=== PATIENT | female | born 1940 | race American Indian/Alaskan Native ===

== ENCOUNTER 2021-01-06 13:27 | Emergency (ER) | payer MEDICARE ==
--- NOTE | 2021-01-06 13:52 | Event Note ---
ED Screening Note ED Screening Note: [facility] OPEN FX L WRIST This initial assessment/diagnostic orders/clinical plan/treatment(s) is/are subject to change based on patients health status, clinical progression and re- assessment by fellow clinical providers in the ED. Further treatment and workup at subsequent clinical providers discretion. Patient/guardian urged not to elope from the ED as their condition may be serious if not clinically assessed and managed. Initial orders include: TO ER
[2021-01-06] MEDS ORDERED: KETOROLAC 30 MG/1 ML INJ IV ONE (14:07)
[2021-01-06] MEDS ORDERED: ONDANSETRON 4 MG/2 ML INJ IV ONE (14:07)
[2021-01-06] MEDS ORDERED: DIPHtheria,PERTUSSIS(ACELL),TETANUS VACCINE/PF 0.5 ML VIAL IM ONE (14:07)
[2021-01-06] MEDS ORDERED: HYDROmorphone 1 MG/1 ML INJ IV ONE ×2 (14:07→17:07)
--- NOTE | 2021-01-06 14:22 | Emergency Department Report ---
ED Upper Extremity Inj HPI - General Chief Complaint: Extremity Injury, Upper Stated Complaint: LT WRIST INJURY Time Seen by Provider: 01/06/21 13:51 Source: patient Mode of arrival: Ambulatory Limitations: No Limitations - History of Present Illness Initial Comments: 80-year [id number] female with no significant past medical history presents to the hospital complaints of pain to left wrist after fall injury. Patient bent over to tie her shoes and fell forward. She used her left hand to brace herself resulting in pain and deformity. Small laceration also present. Patient denies head injury or LOC. Pain is 10/10 in intensity, constant, worse with movement and palpation. Patient not take any current medication. Patient admits that she has not seen a doctor in several years and presents to the ED hypertensive but in significant pain - Related Data Previous Rx's Medication Instructions Recorded Last Taken Type Clindamycin [Clindamycin CAP] 450 mg PO Q8HR #21 capsule 01/06/21 Unknown Rx HYDROcodone/APAP 5-325 [Dike 1 each PO Q6HR PRN #15 tablet 01/06/21 Unknown Rx 5/325] Ibuprofen [Motrin] 600 mg PO Q8H PRN #20 tablet 01/06/21 Unknown Rx Allergies Allergy/AdvReac Type Severity Reaction Status Date / Time Penicillins Allergy Unknown Verified 01/06/21 14:00 ED Review of Systems ROS: Stated complaint: LT WRIST INJURY Other details as noted in HPI Comment: All other systems reviewed and negative ED Past Medical Hx - Past Medical History Previous Medical History?: No - Surgical History Past Surgical History?: Yes 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 - Social History Smoking Status: Former Smoker Substance Use Type: None - Medications Home Medications: Home Medications Medication Instructions Recorded Confirmed Last Taken Type Clindamycin [Clindamycin CAP] 450 mg PO Q8HR #21 capsule 01/06/21 Unknown Rx HYDROcodone/APAP 5-325 [Dike 1 each PO Q6HR PRN #15 tablet 01/06/21 Unknown Rx 5/325] Ibuprofen [Motrin] 600 mg PO Q8H PRN #20 tablet 01/06/21 Unknown Rx ED Physical Exam - General Limitations: No Limitations - Other Other exam information: General: No acute distress Head: Atraumatic Eyes: normal appearance ENT: Moist mucous membranes Neck: Normal appearance, no midline tenderness Chest: Clear to auscultation bilaterally CV: Regular rate and rhythm Abdomen: Soft, normal bowel sounds, nontender, nondistended, no rebound or guarding Back: Normal inspection Extremity: Obvious left wrist deformity with pain on palpation and movement. 2+ radial and ulnar pulse, cap refill less than 2 seconds, sensation intact to distal fingertips Neuro: Alert O x 3, no facial asymmetry, speech clear, no gross motor sensory deficit Psych: Appropriate behavior Skin: 2 cm laceration to ulnar side of forearm ED Course Vital Signs 01/06/21 01/06/21 01/06/21 13:54 14:03 14:20 Temperature 97.9 F Pulse Rate 74 69 Respiratory 24 16 18 Rate Blood Pressure 224/105 228/104 [Right] O2 Sat by Pulse 100 99 Oximetry 01/06/21 01/06/21 15:39 18:27 Temperature Pulse Rate 69 Respiratory 18 16 Rate Blood Pressure 194/84 188/65 [Right] O2 Sat by Pulse 96 Oximetry - Consultations Consultation #1: 01/06/21 16:[address] Jiang. Images reviewed. Advised 1-2 sutures to be placed (loose approximation and wound), splinting without reduction as long as patient is neurovascularly intact, antibiotics, and follow-up in the office for outpatient repair - Laceration /Wound Repair Left Wrist Wound Location: upper extremity Wound Length (cm): 2 Wound's Depth, Shape: linear, nail-avulsed Irrigated w/ Saline (ccs): 20 Betadine Prep?: Yes Volume Anesthetic (ccs): 3 Wound Debrided: minimal Wound Repaired With: sutures Suture Size/Type: 4:0, proline Number of Sutures: 2 Layer Closure?: No Sterile Dressing Applied?: Yes Progress: Patient had a brisk superficial venous bleed at the laceration site. I was able to achieve hemostasis with a [id number] stitch at the area of bleeding and applied an additional simple interrupted suture to approximate the opposite side of the wound 2 stitches total placed to loosely approximate the wound and achieve hemostasis as per orthopedic recommendation ED Medical Decision Making - Radiology Data Radiology results: report reviewed LEFT WRIST 4 VIEWS INDICATION: wrist deformity after fall. COMPARISON: None. IMPRESSION: Borderline to mild osteopenia. A comminuted, displaced fracture is identified through the distal radial metaphysis with extension to the radiocarpal joint. Posterior displacement dinesh sures 1.8 cm. There is also a 1.1 cm overlap at the fracture site. The distal ulna and carpal bones are grossly intact. Severe soft tissue swelling is noted. - Medical Decision Making 80-year-old female presents to the hospital with right wrist fracture with laceration. Clindamycin provided IV along with tetanus, pain medication and nausea medication. Patient had a brisk venous bleed at the laceration site which improved after suture placement. Case and images discussed with orthope dic surgeon who advises to splint without reduction as long as patient is neurovascularly intact. Patient informed of her elevated blood pressure but states she is anxious and also was in pain. I encouraged her to follow-up with a primary care doctor and also to recheck her blood pressure as outpatient. Outpatient follow-up for PMD and orthopedic will be provided. Critical Care Time: No Critical care attestation.: If time is entered above; I have spent that time in minutes in the direct care of this critically ill patient, excluding procedure time. ED Disposition Clinical Impression: Distal radius fracture, left, Wrist laceration, Elevated blood pressure reading Disposition: TO HOME OR SELFCARE Is pt being admited?: No Does the pt Need Aspirin: No Condition: Stable Instructions: Cast or Splint Care, Adult, [id number], Wound Care, Adult, How to Take Your Blood Pressure, Wrist Fracture Treated With Immobilization, Hypertension, Adult, [id number] Additional Instructions: Take the medication as prescribed. Follow-up with your doctor or doctor/clinic provided. Return if symptoms worsen as indicated by your discharge instructi ons. Follow-up with orthopedic doctor for management of your wrist fracture. You will likely require surgery to fix your broken wrist. Take the antibiotics as prescribed to prevent infection. If you have fever or worsening pain come to the emergency department for reevaluation since you do have a wound with in the splint. Two stitches have been placed in this wound and needs to be removed in 7 to 10 days. This can be performed by orthopedic doctor as well Your blood pressure was elevated today. You presented in pain and complained of being anxious. However, I am concerned that you have underlying high blood pressure that would need further treatment with medication. I recommend follow- up with a primary care doctor and monitoring of your blood pressure at home. If needed a primary care doctor can initiate blood pressure medication. Prescriptions: Clindamycin [Clindamycin CAP] 450 mg PO Q8HR #21 capsule Ibuprofen [Motrin] 600 mg PO Q8H PRN #20 tablet PRN Reason: Pain HYDROcodone/APAP 5-325 [Dike 5/325] 1 each PO Q6HR PRN #15 tablet PRN Reason: Pain Referrals: TYLER JIANG MD [Staff Physician] - 3-5 Days (orthopedic doctor ) KAYLA OVERTON MD [Staff Physician] - 3-5 Days ( primary care doctor) [facility] [Provider Group] - 3-5 Days (Primary care clinic) LAUREN APARICIO MD [Staff Physician] - 3-5 Days (Primary care doctor) Time of Disposition: 18:54
--- NOTE | 2021-01-06 14:46 | XRay Report ---
LEFT WRIST 4 VIEWS INDICATION: wrist deformity after fall. COMPARISON: None. IMPRESSION: Borderline to mild osteopenia. A comminuted, displaced fracture is identified through t he distal radial metaphysis with extension to the radiocarpal joint. Posterior displacement measures 1.8 cm. There is also a 1.1 cm overlap at the fracture site. The distal ulna and carpal bones are olga ssly intact. Severe soft tissue swelling is noted. Signer Name: Robby Valencia Jr, MD Signed: 01/06/2021 2:42 PM Workstation Name: [id number]
[2021-01-06] MEDS ORDERED: LIDOCAINE 1%/EPINEPHRINE 1:100,000 VIAL (20 ML) INFILTRATI ONE (16:06)
[2021-01-06] MEDS ORDERED: LIDOCAINE (1%) 10 MG/1 ML VIAL 20 ML MDV INFILTRATI ONE (16:47)
[2021-01-06 18:27] VITALS: BP 188/65
== END 2021-01-06 19:10 | disposition home or self-care (01) ==
LOC: ED 13:27
DX: S52.502A Unspecified fracture of the lower end of left radius, initial encounter for closed fracture (principal); S61.512A Laceration without foreign body of left wrist, initial encounter; R03.0 Elevated blood-pressure reading, without diagnosis of hypertension; Z98.890 Other specified postprocedural states; Z87.891 Personal history of nicotine dependence; Z79.1 Long term (current) use of non-steroidal anti-inflammatories (NSAID); Z79.2 Long term (current) use of antibiotics; Z79.899 Other long term (current) drug therapy; Z88.0 Allergy status to penicillin; W19.XXXA Unspecified fall, initial encounter; Y93.89 Activity, other specified; Y92.89 Other specified places as the place of occurrence of the external cause; Y99.8 Other external cause status
CPT/HCPCS: 12001; 29125; 73110; 90471; 90715; 96365; 96375; 96376; 99284; J1170; J1885; J2405